=== PATIENT | female | born 1990 | race Caucasian/White ===

== ENCOUNTER 2023-12-15 06:00 | Outpatient (CLI) | payer OTHER ==
[2023-12-15 10:39] LABS: HEMATOCRIT 30.3 % (36.0-45.00); HEMOGLOBIN 9.5 g/dL (12.0-15.00); MEAN CORPUSCULAR HEMOGLOBIN 21.4 pg (27.00-32.0); MEAN CORPUSCULAR HGB CONC 31.5 g/dl (32.0-36.0); PLATELET COUNT 263 K/uL (150-450); RED BLOOD COUNT 4.45 M/uL (4.00-6.00); RED CELL DISTRIBUTION WIDTH 18.9 % (11.5-14.5)
[2023-12-15 10:42] LABS: MEAN CELL VOLUME 68.1 fL (80.00-100.00)
[2023-12-15 11:07] LABS: PH,URINE 6.5 (5.0-8.0); URINE APPEARANCE Clear; URINE BILIRRUBIN Negative (NEGATIVE); URINE BLOOD Negative; URINE COLOR Yellow; URINE GLUCOSE Negative (NEGATIVE); URINE KETONE Negative (NEGATIVE); URINE LEUKOCYTE Negative; URINE NITRATE Negative; URINE PROTEIN Negative (NEGATIVE); URINE UROBILINOGEN 0.2 E.U./dl
[2023-12-15 11:11] LABS: INR 0.98; PARTIAL THROMBOPLASTIN TIME 28.7 SECONDS (22.0-34.0); PROTHROMBIN TIME 10.3 SECONDS (9.0-11.5)
[2023-12-15 11:12] LABS: URINE BACTERIA 2128.1 uL (0.0-1933); URINE EPITHELIAL CELLS 13.2 uL (0.0-38.8); URINE RBC 12.5 uL (0.0-20.8); URINE WBC 8.1 uL (0.0-23.2)
[2023-12-15 11:17] LABS: URINE CAST 0.45 uL (0.0-1.40)
== END 2023-12-15 06:01 | disposition home or self-care (01) ==
LOC: LAB 06:00 → ADM 09:15 → CIR.AMB 12-21 07:00 → EDSTATUS 12-21 09:15
PROVIDERS: ATTEND Obstetrics & Gynecology
DX: N92.1 Excessive and frequent menstruation with irregular cycle (principal)

== ENCOUNTER 2024-05-02 11:50 | Day surgery (SDC) | payer OTHER ==
[2024-04-20 09:12] LABS: HEMATOCRIT 35.4 % (36.0-45.00); HEMOGLOBIN 11.9 g/dL (12.0-15.00); MEAN CELL VOLUME 77.4 fL (80.00-100.00); MEAN CORPUSCULAR HEMOGLOBIN 25.9 pg (27.00-32.0); MEAN CORPUSCULAR HGB CONC 33.5 g/dl (32.0-36.0); PLATELET COUNT 243 K/uL (150-450); RED BLOOD COUNT 4.58 M/uL (4.00-6.00); RED CELL DISTRIBUTION WIDTH 18.7 % (11.5-14.5)
[2024-04-20 09:20] LABS: PH,URINE 5.5 (5.0-8.0); URINE APPEARANCE Clear; URINE BILIRRUBIN Negative (NEGATIVE); URINE BLOOD Negative; URINE COLOR Yellow; URINE GLUCOSE Negative (NEGATIVE); URINE KETONE Negative (NEGATIVE); URINE LEUKOCYTE Negative; URINE NITRATE Negative; URINE PROTEIN Negative (NEGATIVE); URINE UROBILINOGEN 0.2 E.U./dl
[2024-04-20 09:24] LABS: URINE BACTERIA 1360.7 uL (0.0-1933); URINE EPITHELIAL CELLS 29.5 uL (0.0-38.8); URINE RBC 7.9 uL (0.0-20.8); URINE WBC 9.7 uL (0.0-23.2)
[2024-04-20 09:37] LABS: INR 0.97; PARTIAL THROMBOPLASTIN TIME 28.8 SECONDS (22.0-34.0); PROTHROMBIN TIME 10.6 SECONDS (9.0-11.5)
[2024-04-20 11:36] LABS: RH POSITIVE
[2024-05-02] MEDS ORDERED: POVIDONE-IODINE 118 ML BOTT TOP ONE (20:30)
[2024-05-02] MEDS ORDERED: RINGERS SOLUTION,LACTATED 1,000 ML IV SCH (21:30)
== END 2024-05-03 00:20 | disposition home or self-care (01) ==
LOC: U 11:50 → CIR.AMB 11:50
PROVIDERS: ATTEND Obstetrics & Gynecology
DX: N85.00 Endometrial hyperplasia, unspecified (principal); N72 Inflammatory disease of cervix uteri; N93.8 Other specified abnormal uterine and vaginal bleeding